=== PATIENT | female | born 1960 | race Caucasian/White ===

== ENCOUNTER 2019-01-12 07:16 | Day surgery (SDC) | payer OTHER ==
[2019-01-07 15:02] LABS: Urine Amorphous Crystal FEW /hpf (None Seen); Urine Bacteria FEW /hpf (None Seen); Urine Blood Negative /uL (Negative); Urine Specific Gravity 1.011 (1.001-1.035); Urine WBC <1 /hpf (0 - 5)
[2019-01-07 15:11] LABS: Basophils # (auto) 0 uL; Basophils % (auto) 0.6 % (0.0-2.0); Eosinophils # (auto) 0 uL; Eosinophils % (auto) 0.5 % (0.0-7.0); Hematocrit 36.4 % (36.0-46.0); Hemoglobin 12.2 g/dL (12.2-16.2); Lymphocytes # (auto) 2.6 uL; Lymphocytes % (auto) 42.1 % (10.0-50.0); Mean Corpuscular Hemoglobin 31.4 pg (28.0-32.0); Mean Corpuscular Hgb Conc. 33.6 g/dL (32.0-36.0); Mean Corpuscular Volume 93.5 fL (80.0-100.0); Monocytes # (auto) 0.4 uL; Monocytes % (auto) 6.1 % (0.0-12.0); Neutrophils # (auto) 3.1 uL; Neutrophils % (auto) 50.7 % (37.0-80.0); Platelet Count (auto) 252 10^3/uL (140-450); Red Blood Cells 3.89 10^6/uL (4.0-5.20); Red Cell Distribution Width 13.4 % (11.8-14.3); White Blood Cell 6.1 10^3/uL (4.4-10.8)
[2019-01-07 15:12] LABS: BUN/Creatinine Ratio 24.6; Calcium 9.3 mg/dL (8.5-10.1); Potassium 4.1 mmol/L (3.5-5.1)
[2019-01-07 15:25] LABS: Bilirubin, Total 0.2 mg/dL (0.2-1.0); Total Protein 7.3 g/dL (6.4-8.2)
[2019-01-07 16:01] LABS: INR 0.92 (0.9-1.15); Partial Thromboplastin Time 24.5 sec (23.64-32.05)
[~2019-01-12] VITALS: Ht 175.3 cm; Wt 61.2 kg
[2019-01-12] MEDS ORDERED: ceFAZolin 1GM/50ML 50 ML IV ONE (07:37)
[2019-01-12] MEDS ORDERED: MIDAZOLAM HCL 1MG/1ML-2 ML VIAL ONE (07:48)
[2019-01-12] MEDS ORDERED: PROPOFOL 10 MG/ML 20 ML IV ONE (07:48)
[2019-01-12] MEDS ORDERED: ONDANSETRON HCL 4 MG/2 ML VIAL ONE (07:48)
[2019-01-12] MEDS ORDERED: fentaNYL CITRATE 100 MCG/2 ML VL ONE (07:48)
[2019-01-12] MEDS ORDERED: SODIUM CHLORIDE LOCK 10 ML ONE (07:48)
[2019-01-12] MEDS ORDERED: KETOROLAC TROMETH 30 MG/ML 1ML VIAL IV ONE (08:15)
[2019-01-12] MEDS ORDERED: METOCLOPRAMIDE HCL 5MG/ml INJ 2ml VIAL IV ONE (08:15)
[2019-01-12] MEDS ORDERED: HYDROmorphone HCL 2 MG/ML VL IV PRN (08:15)
[2019-01-12] MEDS ORDERED: ROPIVACAINE 0.5% (5MG/ML) 20ML AMPULE IJ ONE (08:30)
[2019-01-12 10:09] VITALS: BP 108/66
== END 2019-01-12 10:17 | disposition home or self-care (01) ==
LOC: SUR 07:16
PROVIDERS: ATTEND Podiatrist Foot & Ankle Surgery
DX: M20.21 Hallux rigidus, right foot (principal); M72.2 Plantar fascial fibromatosis; M20.5X1 Other deformities of toe(s) (acquired), right foot
CPT/HCPCS: 28060; 28289; 36415; 80053; 81001; 85025; 85610; 85730; 88304; 88311; 93005; J0690; J2250; J2405; J2704; J2795; J3010; Q4100

== ENCOUNTER 2021-10-12 13:43 | Inpatient (IN) | payer BC, OTHER ==
[~2021-10-12] VITALS: Ht 175.3 cm; Wt 64.8 kg
[2021-10-12] MEDS ORDERED: metroNIDAZOLE 500MG/100ML 100 ML IV ONE (14:00)
[2021-10-12] MEDS ORDERED: SODIUM CHLORIDE 0.9% 1,000 ML IV ONE (14:00)
[2021-10-12] MEDS ORDERED: cefTRIAXone 1GM/50ML D5W 50 ML IV ONE (14:00)
[2021-10-12 14:56] LABS: Basophils # (auto) 0.2 10 ^3/uL (0-0.2); Basophils % (auto) 3.1 % (0.0-2.0); Eosinophils # (auto) 0.1 10 ^3/uL (0-0.8); Hematocrit 31.6 % (36.0-46.0); Hemoglobin 10.7 g/dL (12.2-16.2); Lymphocytes # (auto) 1.8 10 ^3/uL (0.4-5.4); Mean Corpuscular Hemoglobin 29.4 pg (28.0-32.0); Mean Corpuscular Hgb Conc. 33.8 g/dL (32.0-36.0); Mean Corpuscular Volume 86.8 fL (80.0-100.0); Monocytes # (auto) 0.4 10 ^3/uL (0-1.3); Monocytes % (auto) 6.5 % (0.0-12.0); Neutrophils # (auto) 3.4 10 ^3/uL (1.6-8.6); Neutrophils % (auto) 58.4 % (37.0-80.0); Nucleated Red Blood Cells % 0.1 %; Red Blood Cells 3.63 10^6/uL (4.0-5.20); Red Cell Distribution Width 13.5 % (11.8-14.3); White Blood Cell 5.8 10^3/uL (4.4-10.8)
[2021-10-12 15:07] LABS: Urine Bacteria NONE SEEN /hpf (None Seen); Urine Blood Negative /uL (Negative); Urine WBC 1 /hpf (0 - 5)
[2021-10-12 15:13] LABS: Calcium 9.1 mg/dL (8.5-10.1); Magnesium 2.3 mg/dL (1.6-2.6); Potassium 3.9 mmol/L (3.5-5.1)
[2021-10-12 15:17] LABS: BUN/Creatinine Ratio 20.3; Bilirubin, Total 0.1 mg/dL (0.2-1.0); Total Protein 6.6 g/dL (6.4-8.2)
[2021-10-12 15:29] LABS: INR 1.08 (0.9-1.15); Partial Thromboplastin Time 28.1 sec (23.6-33.0)
[2021-10-12] MEDS ORDERED: HYDROcodone-ACET 5/325MG TAB PO PRN (17:45)
[2021-10-12] MEDS ORDERED: ONDANSETRON HCL 4 MG/2 ML VIAL IV PRN (17:45)
[2021-10-12] MEDS ORDERED: ACETAMINOPHEN 325 MG TAB PO PRN (17:45)
[2021-10-12] MEDS ORDERED: DOCUSATE SOD 100 MG CAP PO PRN (17:45)
[2021-10-12] MEDS ORDERED: NITROGLYCERIN 0.4 MG SL TAB SL PRN (17:45)
[2021-10-12] MEDS ORDERED: MORPHINE SULFATE INJECTION 2 MG/ML SYRG IV PRN ×2 (17:45)
[2021-10-12] MEDS: PIPERACILLIN-TAZOB 3.375GM 100 ML IV SCH (18:44)
[2021-10-12] MEDS: D5W/SOD CHL 0.45% 1,000 ML IV SCH (18:45)
[2021-10-12 19:56] VITALS: BP 123/64
[2021-10-12 20:00] VITALS: BP 123/64
[2021-10-12 20:16] VITALS: BP 123/64
[2021-10-12 20:22] VITALS: BP 123/64
[2021-10-12 22:01] VITALS: BP 112/67
[2021-10-13] VITALS (7 sets, daily range): BP systolic 104–144; BP diastolic 68–71
[2021-10-13] MEDS: PIPERACILLIN-TAZOB 3.375GM 100 ML IV SCH ×3 (01:47→18:00)
[2021-10-13] MEDS: D5W/SOD CHL 0.45% 1,000 ML IV SCH ×4 (04:08→18:29)
[2021-10-13 10:00] LABS: Basophils # (auto) 0 10 ^3/uL (0-0.2); Basophils % (auto) 0.6 % (0.0-2.0); Eosinophils # (auto) 0 10 ^3/uL (0-0.8); Hemoglobin 11.2 g/dL (12.2-16.2); Lymphocytes # (auto) 1.3 10 ^3/uL (0.4-5.4); Lymphocytes % (auto) 34.9 % (10.0-50.0); Mean Corpuscular Hemoglobin 29.6 pg (28.0-32.0); Mean Corpuscular Hgb Conc. 33.8 g/dL (32.0-36.0); Mean Corpuscular Volume 87.6 fL (80.0-100.0); Monocytes # (auto) 0.5 10 ^3/uL (0-1.3); Neutrophils % (auto) 51.5 % (37.0-80.0); Nucleated Red Blood Cells % 0.1 %; Red Blood Cells 3.77 10^6/uL (4.0-5.20); Red Cell Distribution Width 13.4 % (11.8-14.3); White Blood Cell 3.8 10^3/uL (4.4-10.8)
[2021-10-13 10:11] LABS: Calcium 8.8 mg/dL (8.5-10.1); Potassium 3.8 mmol/L (3.5-5.1)
[2021-10-13 10:15] LABS: BUN/Creatinine Ratio 10.8; Bilirubin, Total 0.2 mg/dL (0.2-1.0); Total Protein 6.5 g/dL (6.4-8.2)
[2021-10-14] MEDS: PIPERACILLIN-TAZOB 3.375GM 100 ML IV SCH ×4 (02:22→18:00)
[2021-10-14 05:00] VITALS: BP 104/56
[2021-10-14 06:19] LABS: Calcium 8.7 mg/dL (8.5-10.1); Potassium 3.7 mmol/L (3.5-5.1)
[2021-10-14 06:22] LABS: BUN/Creatinine Ratio 6.1; Bilirubin, Total 0.2 mg/dL (0.2-1.0); Total Protein 6.6 g/dL (6.4-8.2)
[2021-10-14 06:31] LABS: Basophils # (auto) 0 10 ^3/uL (0-0.2); Basophils % (auto) 1.1 % (0.0-2.0); Eosinophils # (auto) 0 10 ^3/uL (0-0.8); Eosinophils % (auto) 1.1 % (0.0-7.0); Hematocrit 34.3 % (36.0-46.0); Hemoglobin 11.3 g/dL (12.2-16.2); Lymphocytes % (auto) 49.4 % (10.0-50.0); Mean Corpuscular Hgb Conc. 33.1 g/dL (32.0-36.0); Mean Corpuscular Volume 87.5 fL (80.0-100.0); Monocytes # (auto) 0.4 10 ^3/uL (0-1.3); Monocytes % (auto) 11.2 % (0.0-12.0); Neutrophils # (auto) 1.5 10 ^3/uL (1.6-8.6); Neutrophils % (auto) 37.2 % (37.0-80.0); Nucleated Red Blood Cells % 0.1 %; Red Blood Cells 3.92 10^6/uL (4.0-5.20); Red Cell Distribution Width 13.3 % (11.8-14.3)
[2021-10-14 08:05] VITALS: BP 126/60
[2021-10-14] MEDS ORDERED: IOHEXOL 300 MG/ML 100ML BOTTLE IJ ONE (08:27)
[2021-10-14 12:10] VITALS: BP 112/62
[2021-10-14] MEDS: D5W/SOD CHL 0.45% 1,000 ML IV SCH (12:45)
[2021-10-14 14:10] VITALS: BP 134/64
[2021-10-14 20:00] VITALS: BP 123/68
[2021-10-14 22:00] VITALS: BP 103/64
[2021-10-15] MEDS: PIPERACILLIN-TAZOB 3.375GM 100 ML IV SCH ×3 (02:30→17:19)
[2021-10-15 05:00] VITALS: BP 108/68
[2021-10-15] MEDS: D5W/SOD CHL 0.45% 1,000 ML IV SCH ×4 (05:40→23:50)
[2021-10-15 06:17] LABS: Basophils # (auto) 0 10 ^3/uL (0-0.2); Basophils % (auto) 0.9 % (0.0-2.0); Eosinophils # (auto) 0.1 10 ^3/uL (0-0.8); Eosinophils % (auto) 1.7 % (0.0-7.0); Hemoglobin 12.1 g/dL (12.2-16.2); Lymphocytes % (auto) 51.7 % (10.0-50.0); Mean Corpuscular Hemoglobin 29.5 pg (28.0-32.0); Mean Corpuscular Hgb Conc. 33.6 g/dL (32.0-36.0); Mean Corpuscular Volume 87.6 fL (80.0-100.0); Monocytes # (auto) 0.4 10 ^3/uL (0-1.3); Monocytes % (auto) 10.1 % (0.0-12.0); Neutrophils # (auto) 1.4 10 ^3/uL (1.6-8.6); Neutrophils % (auto) 35.6 % (37.0-80.0); Nucleated Red Blood Cells % 0.1 %; Red Blood Cells 4.11 10^6/uL (4.0-5.20); Red Cell Distribution Width 13.1 % (11.8-14.3)
[2021-10-15 06:47] LABS: Albumin 3.1 g/dL (3.4-5.0); Calcium 9.2 mg/dL (8.5-10.1); Potassium 3.7 mmol/L (3.5-5.1)
[2021-10-15 06:49] LABS: BUN/Creatinine Ratio 6.3
[2021-10-15 06:52] LABS: Bilirubin, Total 0.2 mg/dL (0.2-1.0); Total Protein 6.8 g/dL (6.4-8.2)
[2021-10-15 09:35] VITALS: BP 126/63
[2021-10-15 12:59] VITALS: BP 123/64
[2021-10-15 16:33] VITALS: BP 115/59
[2021-10-15 20:00] VITALS: BP 108/59
[2021-10-15 22:00] VITALS: BP 108/59
[2021-10-16] MEDS: PIPERACILLIN-TAZOB 3.375GM 100 ML IV SCH ×2 (01:55→10:55)
[2021-10-16 05:00] VITALS: BP 110/63
[2021-10-16 05:48] LABS: Basophils # (auto) 0 10 ^3/uL (0-0.2); Basophils % (auto) 0.7 % (0.0-2.0); Eosinophils # (auto) 0.1 10 ^3/uL (0-0.8); Eosinophils % (auto) 1.7 % (0.0-7.0); Hemoglobin 11.7 g/dL (12.2-16.2); Lymphocytes # (auto) 2.1 10 ^3/uL (0.4-5.4); Lymphocytes % (auto) 48.2 % (10.0-50.0); Mean Corpuscular Hemoglobin 29.6 pg (28.0-32.0); Mean Corpuscular Hgb Conc. 34.2 g/dL (32.0-36.0); Mean Corpuscular Volume 86.6 fL (80.0-100.0); Monocytes # (auto) 0.4 10 ^3/uL (0-1.3); Monocytes % (auto) 8.1 % (0.0-12.0); Neutrophils # (auto) 1.8 10 ^3/uL (1.6-8.6); Neutrophils % (auto) 41.3 % (37.0-80.0); Nucleated Red Blood Cells % 0.1 %; Red Blood Cells 3.93 10^6/uL (4.0-5.20); Red Cell Distribution Width 13.4 % (11.8-14.3); White Blood Cell 4.4 10^3/uL (4.4-10.8)
[2021-10-16 08:51] VITALS: BP 113/64
[2021-10-16] MEDS ORDERED: LEVO500T31 PO (10:17)
[2021-10-16] MEDS ORDERED: METR500T PO (10:17)
== END 2021-10-16 13:45 | disposition home or self-care (01) | DRG 392 ==
LOC: ER 13:43 → OVERFLOW 17:41 → CENTRAL 19:30
PROVIDERS: ADMIT Family Medicine; ATTEND Internal Medicine
DX: K57.20 Diverticulitis of large intestine with perforation and abscess without bleeding (principal); E44.0 Moderate protein-calorie malnutrition; D64.9 Anemia, unspecified; R73.9 Hyperglycemia, unspecified; R62.7 Adult failure to thrive; Z20.822 Contact with and (suspected) exposure to COVID-19; Z68.21 Body mass index [BMI] 21.0-21.9, adult; Z82.49 Family history of ischemic heart disease and other diseases of the circulatory system
CPT/HCPCS: 36415; 71046; 80053; 81001; 83605; 83690; 83735; 85025; 85610; 85730; 87040; 93005; 96365; 96367; G0378; J0696; J2543; J3490

== ENCOUNTER 2024-01-26 10:16 | Inpatient (IN) | payer BC ==
[~2024-01-26] VITALS: Ht 175.3 cm; Wt 58.9 kg
[~2024-01-26 10:16] MED LIST: LEVO500T31 PO; METR500T PO
[2024-01-26 11:15] VITALS: PULSE 74; RESP 17; O2SAT 97
[2024-01-26 11:36] LABS: Basophils # (auto) 0 10 ^3/uL (0-0.2); Basophils % (auto) 0.4 % (0.0-2.0); Eosinophils # (auto) 0 10 ^3/uL (0-0.8); Hematocrit 36.8 % (36.0-46.0); Hemoglobin 12.5 g/dL (12.2-16.2); Lymphocytes # (auto) 0.9 10 ^3/uL (0.4-5.4); Lymphocytes % (auto) 12.1 % (10.0-50.0); Mean Corpuscular Volume 91.2 fL (80.0-100.0); Monocytes # (auto) 0.5 10 ^3/uL (0-1.3); Neutrophils # (auto) 6.1 10 ^3/uL (1.6-8.6); Neutrophils % (auto) 80.5 % (37.0-80.0); Nucleated Red Blood Cells % 0.1 %; Red Blood Cells 4.03 10^6/uL (4.0-5.20); Red Cell Distribution Width 13.4 % (11.8-14.3); White Blood Cell 7.5 10^3/uL (4.4-10.8)
[2024-01-26 11:38] LABS: Urine Bacteria FEW /hpf (None Seen); Urine Blood Negative /uL (Negative); Urine Budding Yeast MANY /hpf (None Seen); Urine Clarity Ex.Turbid (Clear); Urine Color Light-Orange (Yellow); Urine Protein, UAD 1+ (Negative); Urine Specific Gravity 1.019 (1.001-1.035); Urine Urobilinogen Normal (Negative); Urine WBC 22 /hpf (0 - 5)
[2024-01-26] MEDS: ONDANSETRON HCL 4 MG/2 ML VIAL IV ONE (11:39)
[2024-01-26] MEDS: SODIUM CHLORIDE 0.9% 1,000 ML IV ONE (11:39)
[2024-01-26 11:54] LABS: Acetaminophen < 2.0 UG/ML (10.0-20.0)
[2024-01-26 11:55] LABS: Alanine Aminotransferase 22 U/L (7-40); Albumin 4.4 g/dL (3.2-4.8); Alkaline Phosphatase 56 U/L (46-116); Anion Gap 7 (5-15); Aspartate Aminotransferase 20 U/L (13-40); Blood Urea Nitrogen 14 mg/dL (9-23); Calcium 9.5 mg/dL (8.5-10.1); Carbon Dioxide 25 mmol/L (20-30); Chloride 105 mmol/L (98-107); Glucose 113 mg/dL (74-106); Potassium 3.7 mmol/L (3.5-5.1); Sodium 137 mmol/L (136-145)
[2024-01-26 11:56] LABS: Bilirubin, Total 0.5 mg/dL (0.2-1.0); Total Protein 6.9 g/dL (5.7-8.2)
[2024-01-26 11:58] LABS: Salicylate < 3.0 mg/dL (2.8-20.0)
[2024-01-26 12:00] VITALS: TEMP 97.8
[2024-01-26 13:14] LABS: Amphetamine Screen, Urine Neg (NEGATIVE); Barbiturate Scree,Urine Neg (NEGATIVE); Benzodiazephine Screen, Urine Neg (NEGATIVE); Cocaine Screen, Urine Neg (NEGATIVE); Opiate Scree,Urine Neg (NEGATIVE)
[2024-01-26 13:15] LABS: Cannabinoid Screen, Urine Neg (NEGATIVE); Phencyclidine Screen, Urine Neg (NEGATIVE)
[2024-01-26 14:45] VITALS: BP 112/59; PULSE 74; RESP 16; O2SAT 97
[2024-01-26] MEDS ORDERED: MORPHINE SULFATE INJ 2 MG/ml SYRG IV PRN ×2 (15:45)
[2024-01-26] MEDS ORDERED: HYDROcodone-ACET 5/325MG TAB PO PRN (15:45)
[2024-01-26] MEDS ORDERED: ONDANSETRON HCL 4 MG/2 ML VIAL IV PRN (15:45)
[2024-01-26] MEDS ORDERED: NITROGLYCERIN 0.4 MG SL TAB SL PRN (15:45)
[2024-01-26] MEDS ORDERED: SODIUM CHLORIDE 0.9% 1,000 ML IV ONE (15:45)
[2024-01-26] MEDS ORDERED: DOCUSATE SOD 100 MG CAP PO PRN (15:45)
[2024-01-26] MEDS ORDERED: ACETAMINOPHEN 325 MG TAB PO PRN (15:45)
== END 2024-01-26 15:54 | disposition left against medical advice (07) | DRG 918 ==
LOC: ER 10:16 → TELE 15:35
PROVIDERS: ADMIT Nurse Practitioner Family; ATTEND Nurse Practitioner Family
DX: T50.991A Poisoning by other drugs, medicaments and biological substances, accidental (unintentional), initial encounter (principal); Z53.29 Procedure and treatment not carried out because of patient's decision for other reasons; Y92.89 Other specified places as the place of occurrence of the external cause
CPT/HCPCS: 36415; 80053; 80307; 80329; 81001; 82962; 85025; 93005; 96374; 96375; G0378; J2405

== ENCOUNTER 2024-12-16 07:33 | Day surgery (SDC) | payer BC ==
[2024-12-15 12:05] LABS: Urine Bacteria None Seen /hpf (None Seen)
[2024-12-15 12:22] LABS: Basophils # (auto) 0 10 ^3/uL (0-0.2); Basophils % (auto) 0.3 % (0.0-2.0); Eosinophils # (auto) 0 10 ^3/uL (0-0.8); Eosinophils % (auto) 0.3 % (0.0-7.0); Hematocrit 39.3 % (36.0-46.0); Hemoglobin 13.2 g/dL (12.2-16.2); Lymphocytes # (auto) 2.6 10 ^3/uL (0.4-5.4); Mean Corpuscular Hemoglobin 29.9 pg (28.0-32.0); Mean Corpuscular Hgb Conc. 33.6 g/dL (32.0-36.0); Mean Corpuscular Volume 88.9 fL (80.0-100.0); Monocytes # (auto) 0.5 10 ^3/uL (0-1.3); Monocytes % (auto) 6.9 % (0.0-12.0); Neutrophils % (auto) 56.5 % (37.0-80.0); Platelet Count (auto) 356 10^3/uL (140-450); Red Blood Cells 4.41 10^6/uL (4.0-5.20); Red Cell Distribution Width 13.3 % (11.8-14.3); White Blood Cell 7.1 10^3/uL (4.4-10.8)
[2024-12-15 12:28] LABS: Urine Blood Negative /uL (Negative); Urine Clarity Clear (Clear); Urine Color Light-Yellow (Yellow); Urine Hyaline Cast FEW /lpf (0 - 2); Urine Protein, UAD Negative (Negative); Urine Specific Gravity 1.015 (1.001-1.035); Urine Squamous Epithelial Cell FEW /hpf (<5); Urine Urobilinogen Normal (Negative); Urine WBC 1 /HPF (0-5)
[2024-12-15 12:32] LABS: INR 0.97 (0.9-1.15); Partial Thromboplastin Time 27.4 SEC (24.5-34.5); Prothrombin Time 10.3 sec (9.3-11.8)
[2024-12-15 13:02] LABS: Alanine Aminotransferase 15 U/L (7-40); Alkaline Phosphatase 63 U/L (46-116); Anion Gap 7 (5-15); Aspartate Aminotransferase 22 U/L (13-40); BUN/Creatinine Ratio 23.5 (10.0-20.0); Blood Urea Nitrogen 16 mg/dL (9-23); Calcium 9.8 mg/dL (8.7-10.4); Carbon Dioxide 30 mmol/L (20-31); Chloride 103 mmol/L (98-107); Glucose 92 mg/dL (74-106); Potassium 4.5 mmol/L (3.5-5.1); Sodium 140 mmol/L (136-145); Total Protein 7.8 g/dL (5.7-8.2)
[2024-12-15 13:03] LABS: Bilirubin, Total 0.6 mg/dL (0.2-1.0)
[2024-12-15 13:04] LABS: Albumin 5.1 g/dL (3.2-4.8)
[~2024-12-16] VITALS: Ht 175.3 cm; Wt 56.7 kg
[2024-12-16] MEDS ORDERED: ONDANSETRON HCL 4 MG/2 ML VIAL ONE (08:08)
[2024-12-16] MEDS ORDERED: fentaNYL CITRATE 100 MCG/2 ML VL ONE (08:08)
[2024-12-16] MEDS ORDERED: MIDAZOLAM HCL 2MG/2ML 2ml VIAL (1mg/ml) ONE (08:08)
[2024-12-16] MEDS ORDERED: LIDOCAINE 2% (LOCAL ANESTH.) PF 5ml SDV ONE (08:08)
[2024-12-16] MEDS ORDERED: ePHEDrine SULFATE 50 MG/ML AMP ONE (08:08)
[2024-12-16] MEDS ORDERED: DexAMETHasone SOD PHOS 10MG/1ML VIAL INJ ONE (08:08)
[2024-12-16] MEDS ORDERED: PROPOFOL 10 MG/ML 20 ML IV ONE (08:08)
[2024-12-16] MEDS ORDERED: GLYCOPYRROLATE 0.2 MG/ML 1ML VIAL ONE (08:08)
[2024-12-16] MEDS ORDERED: HYDR-4072 PO (08:13)
[2024-12-16] MEDS ORDERED: ZOFR4T PO (08:13)
[2024-12-16] MEDS ORDERED: IBUP-1456 PO (08:13)
[2024-12-16] MEDS ORDERED: LACTATED RINGER'S 1,000 ML IV SCH (08:15)
[2024-12-16] MEDS ORDERED: ONDANSETRON HCL 4 MG/2 ML VIAL IV PRN (08:15)
[2024-12-16] MEDS: ceFAZolin 2 GM/D5W50ml 50 ML IV ONE (08:46)
[2024-12-16 09:33] VITALS: PULSE 108; RESP 18; TEMP 98.5; O2SAT 98
[2024-12-16 09:43] VITALS: PULSE 90; RESP 19; O2SAT 96
[2024-12-16] MEDS ORDERED: ONDANSETRON HCL 4 MG/2 ML VIAL IV ONE (09:45)
[2024-12-16] MEDS ORDERED: HYDROmorphone HCL 2 MG/ML VL/or syr IV PRN (09:45)
[2024-12-16 10:33] VITALS: BP 118/55; PULSE 74; RESP 12; O2SAT 97
--- NOTE | 2024-12-16 13:46 | DVHDS2 ---
Physician Discharge Progress N Final Diagnosis: endometrial hyperplasia ruled out atrophic uterus,atrophic endometrium Operations or Procedures: Operations or Procedures d and c Condition on Discharge: Good Disposition: Home Discharge Instructions: Diet: Regular Activity: Light activity Follow Up/Referral: 1w Medications: kenan gibson Follow Up Care: Specialist: 1w Discharge Statement: "Patient was advised to return to the ER or call 911 if any headaches, dizziness, shortness of breath, chest pain, abdominal pain, bleeding, fevers, or worsening of medical condition. Patient was counseled about treatment plan, medications, possible side effects, patientverbalized understanding. All questions were answered to the best of my ability. This discharge took greater then 30 minutes in planning, reviewing documentation, counseling the patient, and discussing with other team members." Visit Coding OBGYN Date of Service: December 16, 2024 Billing Provider: YANET DICKINSON DO REGISTERED NURSES Common Visit Codes: 26706-PEZ/OBS SAME DATE (HIGH) REGISTERED NURSES Procedure Codes: 96778-E&C, DIAG OR THERAPEUTIC YANET DICKINSON DO December 16, 2024 13:46
--- NOTE | 2024-12-16 15:30 | POSTOP ---
Post-Operative Note Post-Operative Note Preop Diagnosis endometrial hyperplasia Postop Diagnosis: endometrial hyperplasia ruled out atrophic uterus,atrophic endometrium Operation performed d and c Specimen emc Anesthesia: Mac Anesthesiologist: helena Blood Loss(fluid mgmt) 10cc Surgeon Yanet Marquez Implant na Complications & Mgmt none Date 12/16/24 Time 15:29 Visit Coding OBGYN Date of Service: December 16, 2024 Billing Provider: YANET MARQUEZ DO CLAMP REMOVER Common Visit Codes: 28477-KBDMSMK OBS CARE (HIGH) CLAMP REMOVER Procedure Codes: 70786-I&C, DIAG OR THERAPEUTIC YANET MARQUEZ DO December 16, 2024 15:30
--- NOTE | 2024-12-16 15:43 | DVHOP2 ---
Operative Report DATE OF OPERATION: 12/16/24 PREOPERATIVE DIAGNOSES: endometrial hyperplasia POSTOPERATIVE DIAGNOSES: endometrial hyperplasia ruled out ,atrophic endometrium SURGEON: Yanet Marquez D.O. ANESTHESIOLOGIST: dr malik TYPE OF ANESTHESIA : mac CONSENT: The patient was informed of the risks and benefits of the procedure. The patient was informed of the risks and benefits of the procedure. These include but are not limited to , complications of anesthesia, postoperative infection, incomplete relief of symptoms, recurrence of symptoms, damage to blood vessels, nerves and tendons, deep venous thrombosis, pulmonary embolism and possible need for repeat surgery in the future. FINDINGS: ext genitalia wnl,cx stenotic ,uterus 5wks size,endometrium very atrophic and small cavity.hysteroscopic portion unable to be performed due to samll size of the ueterus and stenotic cervical canal . Cervix, Bulbous, [place], and urethrovesical glands appeared normal. SPECIMEN: EMC COMPLICATIONS: None. BLOOD PRODUCTS USED: None. PROCEDURES: dilatation and curettage. PROCEDURE IN DETAIL: The patient was taken to the operating room and placed in supine position. mac anesthesia was performed without difficulty. She was then placed in Michael stirrups and prepped and draped in sterile fashion. Examination under anesthesia revealed pt to have a very small uterus and stenotic cervix. Bulbous, [place], and urethrovesical glands appeared normal. A weighted speculum was placed posteriorly and right-angle [place] anteriorly. Cervix was identified and grasped with a sharp tooth tenaculum. Uterus sounded to 5cm. cx was very stenotic which was carefully dilated and uterus sounded to 5cm.further dilatation of cx to accomadate hysteroscope was not possible subsequently curretting of endometrial cavity was done .specimen was sent to [facility] endometrium. No bleeding was noted. All instruments were removed. The patient was taken to recovery room in stable condition. CONDITION: stable ESTIMATED BLOOD LOSS: 10 mL Visit Coding OBGYN Date of Service: December 16, 2024 Billing Provider: YANET MARQUEZ DO UNDERCOVER OPERATOR Common Visit Codes: 97631-PJSJMFS OBS CARE (HIGH) UNDERCOVER OPERATOR Procedure Codes: 18394-P&C, DIAG OR THERAPEUTIC YANET MARQUEZ DO December 16, 2024 15:43
== END 2024-12-16 10:48 | disposition home or self-care (01) ==
LOC: SUR 07:33
PROVIDERS: ATTEND Obstetrics & Gynecology
DX: N85.00 Endometrial hyperplasia, unspecified (principal); N85.8 Other specified noninflammatory disorders of uterus; N95.2 Postmenopausal atrophic vaginitis
CPT/HCPCS: 36415; 58120; 80053; 81001; 85025; 85610; 85730; 86850; 86900; 86901; 88305; 88342; J0690; J1100; J2003; J2250; J2405; J2704; J3010; J7030